=== PATIENT | female | born 1955 | race Caucasian/White ===

== ENCOUNTER 2024-01-08 19:12 | Emergency (ER) | payer MEDICARE, OTHER ==
[2024-01-08 20:48] LABS: #Basophils 0.1 thou/uL (0.0-0.2); #Lymphocytes 1.3 thou/uL (1.20-3.40); #Monocytes 0.9 thou/uL (0.11-0.59); #Neutrophils 10.6 thou/uL (1.40-6.50); %Basophils 0.4 % (0.0-1.0); %Lymphocytes 10.2 % (21.0-51.0); %Monocytes 7.2 % (0.0-10.0); %Neutrophils 82.2 % (42.0-75.0); Hematocrit 42.4 % (36.0-47.0); Hemoglobin 14.4 g/dL (12.0-16.0); Mean Corpuscular HGB CONC 33.9 g/dL (32.0-36.0); Mean Corpuscular Hemoglobin 29.3 pg (27.0-31.0); Mean Corpuscular Volume 86.2 fl (78.0-98.0); Mean Platelet Volume 7.2 fL (7.4-10.4); Platelet Count 209 10x3/uL (130-400); RBC Distribution Width 11.6 % (11.5-14.5); Red Blood Cell (RBC) Count 4.92 mill/uL (4.20-5.40); White Blood Cell (WBC) Count 12.9 10x3/uL (4.8-10.8)
[2024-01-08 20:54] LABS: INR-International Normal Ratio 0.9; Prothrombin Time 12.5 sec (12.0-14.7)
[2024-01-08 21:02] LABS: ALT (SGPT) 30 U/L (8-55); AST (SGOT) 30 U/L (5-34); Albumin 4.3 g/dL (3.4-4.8); Alkaline Phosphatase 89 U/L (40-110); Anion Gap 17 mmol/L (10-20); BUN (Urea Nitrogen) 22 mg/dL (9.8-20.1); Bilirubin, Total 0.6 mg/dL (0.2-1.2); Calc. Creatinine Clearance 0 mL/min (70-130); Calcium 10.5 mg/dL (7.8-10.44); Carbon Dioxide 20 mmol/L (23-31); Chloride 96 mmol/L (98-107); Estimated GFR 57; Glucose 141 mg/dL (80-115); Potassium 4.2 mmol/L (3.5-5.1); Protein, Total 7.3 g/dL (5.8-8.1); Sodium 129 mmol/L (136-145)
[2024-01-08 21:03] LABS: Troponin I 0.034 ng/mL (< 0.028)
[2024-01-08] MEDS ORDERED: Morphine 4 MG/ML VIAL ONE (21:11)
[2024-01-08] MEDS ORDERED: diphenhydrAMINE 50 MG/ML VIAL ONE (21:11)
[2024-01-08] MEDS ORDERED: Lidocaine Viscous Sol 2% 15 ml UD Cup ONE (21:12)
[2024-01-08] MEDS ORDERED: Milk Of Magnesia 30 ML UDCUP ONE (21:12)
[2024-01-08] MEDS ORDERED: Metoclopramide HCl 10 MG (2 mL) VIAL ONE (21:12)
== END 2024-01-08 23:27 | disposition home or self-care (01) ==
LOC: BURERS 19:12
DX: I10 Essential (primary) hypertension (principal); E87.1 Hypo-osmolality and hyponatremia; G43.909 Migraine, unspecified, not intractable, without status migrainosus; I48.91 Unspecified atrial fibrillation; Z79.82 Long term (current) use of aspirin; Z79.899 Other long term (current) drug therapy
CPT/HCPCS: 70450; 80053; 83880; 84484; 85025; 85610; 93005; 96374; 96375; J1200; J2272; J2765